=== PATIENT | female | born 1975 | race Caucasian/White ===

== ENCOUNTER 2018-01-11 18:17 | Emergency (ER) | END 2018-01-11 21:49 | disposition home or self-care (01) ==

== ENCOUNTER 2018-08-16 18:26 | Emergency (ER) | payer OTHER ==
[~2018-08-16] VITALS: Ht 167.6 cm; Wt 75.4 kg
[~2018-08-16 18:26] MED LIST: AMOX1TAB10 PO; IBUP-1542 PO; IBUP-1561 PO; OXYM15SP34 NASAL
[2018-08-16 18:30] VITALS: Ht 167.6 cm; Wt 75.4 kg
[2018-08-16] MEDS ORDERED: NYST15CR28 TOP (21:23)
[2018-08-16] MEDS ORDERED: TR1B60 TOP (21:23)
[2018-08-16] MEDS ORDERED: BEN25 PO (21:23)
--- NOTE | 2018-08-16 21:28 | ERD ---
ER Documentation Chief Complaint Chief Complaint body rash x 1 week, c/o itch HPI This is a 42-year-old female with a nonsignificant past medical history presents ED with complaints of rash along bilateral hips x1 week. Patient states that she bought new underwear and started noticing the rash along the underwear line over the past week. Admits to itchiness. Denies fever, chills, pain, chest pain, shortness breath, nausea, vomiting, diarrhea, abdominal pain and other symptoms. ROS All systems reviewed and are negative except as per history of present illness. Medications Home Meds Active Scripts Diphenhydramine Hcl* (Benadryl*) 25 Mg Cap, 25 MG PO Q6, #30 CAP Prov:BRITT HIGHTOWER PA-C 08/16/18 Nystatin* (Nystatin*) 15 Gm Cr, 1 APPLIC TOP BID, #1 TUB Prov:BRITT HIGHTOWER PA-C 08/16/18 Triamcinolone Acetonide (Triamcinolone Acetonide) 0.1% - 60 Ml Lotion, 1 APPLIC TOP BID, #1 BOTTLE Prov:BRITT HIGHTOWER PA-C 08/16/18 Ibuprofen* (Motrin*) 600 Mg Tab, 600 MG PO Q6H PRN for PAIN AND OR ELEVATED TEMP, #30 TAB Prov:CARLITOS BUTLER CONTACT LENS TECHNICIAN 01/11/18 Oxymetazoline Hcl* (Afrin [place]*) 0.05% - 15 Ml [place], 2 SPRAYS NASAL BID for 3 Days, #1 EA 0 Refills to each nostril Prov:BONNY GAFFNEY PA-C 10/05/15 Ibuprofen* (Motrin*) 400 Mg Tab, 400 MG PO Q6, #30 TAB 0 Refills Prov:BONNY GAFFNEY PA-C 10/05/15 Amox Tr/Potassium Clavulanate (Amox Tr-K Clv 875-125 Mg Tab) 1 Tab Tablet, 1 TAB PO BID for 10 Days, #20 TAB 0 Refills Prov:BONNY GAFFNEY PA-C 10/05/15 Allergies Allergies: Coded Allergies: No Known Allergy (Unverified , 10/05/15) PMhx/Soc History of Surgery: Yes () Anesthesia Reaction: No Hx Neurological Disorder: No Hx Respiratory Disorders: No Hx Cardiac Disorders: No Hx Psychiatric Problems: Yes (depression) Hx Miscellaneous Medical Probl: Yes (gestational HTN) Hx Alcohol Use: No Hx Substance Use: No Hx Tobacco Use: No Smoking Status: Never smoker Physical Exam Vitals Vital Signs Date Temp Pulse Resp B/P (MAP) Pulse Ox O2 O2 Flow FiO2 Time Delivery Rate 08/16/18 97.3 87 18 140/74 98 18:30 (96) Physical Exam Physical Exam Vitals signs: Reviewed by me. General: Well developed, well nourished, in no acute distress. Patient is awake and alert. Head: Normocephalic, atraumatic. Eyes: Normal conjunctiva, Pupils PERRLA, EOM intact grossly Neurologic: Alert and oriented, moving all extremities, normal speech, no focal weakness, no cerebellar signs. Normal mentation Skin: There is an erythematous papular rash along patient's bilateral hips following underwear line, no lymphatic streaking, nontender to palpation, no rolled borders, no purulent drainage, Psych: Normal mood Procedures/MDM ER COURSE: The patient was stable throughout ED course. I kept the patient and/or family informed of laboratory and diagnostic imaging results throughout the emergency room course. The patient was promptly evaluated and a treatment plan was devised based on H&P and other data. This plan was discussed with the patient who agreed and had no further questions or concerns prior to discharge. MEDICAL DECISION MAKIN-year-old female presents ED with rash on bilateral hips x1 week. low suspicion for anaphylaxis, scabies, STS, TEN, Lyme's disease, syphilis, Alta spotted fever, shingles, disseminated gonorrhea chlamydia, DIC, TTP, ITP, sepsis, necrotizing fasciitis, gangrene, or other emergent condition. Patient's vitals are stable and can be managed with outpatient close follow-up. Advised patient to follow-up with her primary care in the next 48 hours. Advised patient return to ED with any worsening symptoms. DISPOSITION PLAN: We discussed follow up with the patient's primary care doctor within 24 to 48 hours. Patient counseled regarding my diagnostic impression and care plan. Prior to discharge all questions answered. Pt agrees with treatment plan and understands strict return precautions. Precautionary instructions provided including instructions to return to the ER if not improving or for any worsening or changing symptoms or concerns. ExitCare instructions provided. Prior to discharge, patients vital signs have been reviewed SPECIALIST FOLLOW UP RECOMMENDED: None Patient has been advised to follow up with primary care in 1-2 days. Disclaimer: Inadvertent spelling and grammatical errors are likely due to EHR/dictation software use and do not reflect on the overall quality of patient care. Also, please note that the electronic time recorded on this note does not necessarily reflect the actual time of the patient encounter. Departure Diagnosis: Primary Impression: Rash and other nonspecific skin eruption Condition: Stable Patient Instructions: Self-Care for Skin Rashes Referrals: COMMUNITY CLINICS YOU HAVE RECEIVED A MEDICAL SCREENING EXAM AND THE RESULTS INDICATE THAT YOU DO NOT HAVE A CONDITION THAT REQUIRES URGENT TREATMENT IN THE EMERGENCY DEPARTMENT. FURTHER EVALUATION AND TREATMENT OF YOUR CONDITION CAN WAIT UNTIL YOU ARE SEEN IN YOUR DOCTORS OFFICE WITHIN THE NEXT 1-2 DAYS. IT IS YOUR RESPONSIBILITY TO MAKE AN APPOINTMENT FOR FOLOW-UP CARE. IF YOU HAVE A PRIMARY DOCTOR --you should call your primary doctor and schedule an appointment IF YOU DO NOT HAVE A PRIMARY DOCTOR YOU CAN CALL OUR PHYSICIAN REFERRAL HOTLINE AT IF YOU CAN NOT AFFORD TO SEE A PHYSICIAN YOU CAN CHOSE FROM THE FOLLOWING [facility] [address] [facility]. [facility] [address] [facility] [address] [facility] [facility] [address] [facility]. [facility] [address] [facility]. [facility]. [address] Additional Instructions: Patient advised to return to the ED immediately for new or worsening symptoms. Patient advised to follow up with primary care provider in the next 24-48 hours. Patient verbalized understanding and agrees with treatment plan and course of action. If patient has no primary care they may follow up with one of the [facility] clinics listed on the following page or one of the options listed below [facility]LY [facility] + [facility] [address] [place] [id number] or [facility] [address] [place] [address] or [facility] [address] [place] [address] BRITT HIGHTOWER PA-C Aug 16, 2018 21:28
[2018-08-16 21:31] VITALS: BP 135/71; PULSE 80; RESP 18
== END 2018-08-16 21:32 | disposition home or self-care (01) ==
LOC: FTE 18:26
DX: R21 Rash and other nonspecific skin eruption (principal)
CPT/HCPCS: 99283